=== PATIENT | male | born 2000 | race Caucasian/White ===

== ENCOUNTER 2021-01-18 12:40 | Emergency (ER) | payer OTHER | END 2021-01-18 13:18 | disposition left against medical advice (07) | LOC: ER1 12:40 | DX: H57.12 Ocular pain, left eye (principal) ==

== ENCOUNTER 2021-04-14 23:32 | Emergency (ER) | payer OTHER ==
[2021-04-15] MEDS ORDERED: PENVEE K 500 M500 MG PO (00:43)
[2021-04-15] MEDS ORDERED: LODINE CAP 300300 MG PO (00:43)
== END 2021-04-15 00:50 | disposition home or self-care (01) ==
LOC: ER1 23:32
DX: K02.9 Dental caries, unspecified (principal); F17.210 Nicotine dependence, cigarettes, uncomplicated
CPT/HCPCS: 99282

== ENCOUNTER 2022-02-09 14:50 | Emergency (ER) | payer OTHER ==
[~2022-02-09 14:50] MED LIST: LODINE CAP 300300 MG PO; PENVEE K 500 M500 MG PO
== END 2022-02-09 15:06 | disposition left against medical advice (07) ==
LOC: ER1 14:50
DX: Z53.21 Procedure and treatment not carried out due to patient leaving prior to being seen by health care provider (principal)